=== PATIENT | male | born 1950 | race Caucasian/White ===

== ENCOUNTER 2025-02-18 15:18 | Outpatient (CLI) | payer OTHER ==
[~2025-02-18 15:18] MED LIST: TOBRADEX EYE DR10 ML OP
== END 2025-02-18 15:26 | disposition home or self-care (01) ==
LOC: RAD 15:18
PROVIDERS: ATTEND Family Medicine
DX: J44.9 Chronic obstructive pulmonary disease, unspecified (principal); R05.1 Acute cough

== ENCOUNTER 2025-04-01 18:19 | Emergency (ER) | payer OTHER ==
[~2025-04-01] VITALS: Ht 177.8 cm; Wt 70.8 kg
[2025-04-01] MEDS ORDERED: SINGULAIR4 M1 (18:40)
[2025-04-01] MEDS ORDERED: HYOSCYAMINE SULFATE 0.125 MG TAB.SUBL ONE (19:13)
[2025-04-01] MEDS ORDERED: FAMOTIDINE/PF 20 MG/2 ML VIAL ONE (19:13)
[2025-04-01] MEDS ORDERED: HYOSCYAMINE SULFATE 0.125 MG TAB.SUBL SL ONE (19:15)
[2025-04-01] MEDS ORDERED: FAMOtidine 10 MG/ML (4ML VIAL) IV PUSH ONE (19:15)
[2025-04-01 19:30] LABS: BASO % 0.2 % (0.1-1.2); EOS # 0.01 (0.04-0.54); EOS % 0.1 % (0.7-7.0); LYMPH # 1.09 (1.18-3.74); LYMPH % 8.5 % (19.3-53.1); MEAN PLATELET VOLUME 11.10 fl (9.4-12.4); MONO # 0.61 (0.24-0.82); MONO % 4.7 % (4.7-12.5); NEUT # 11.09 (1.56-6.13); NEUT % 86.2 % (34.0-71.1); RED CELL DISTRIBUTION WIDTH 11.9 % (11.6-14.4)
[2025-04-01 20:00] LABS: ALT/SGPT 34.0 U/L (12-78); AST/SGOT 18.0 U/L (15-37); BILIRUBIN TOTAL 0.43 mg/dL (0.3-1.2); BUN CREA RATIO 23.0 (7.0-25.0); CREATININE SERUM 0.94 mg/dL (0.70-1.30); GFR 78.67; GLOBULINA 3.3 G/DL (2.4-3.5); GLUCOSE FASTING 147.0 mg/dL (65-100); OSMOLALITY SERUM 284.0 MOSM/KG (275-295)
[2025-04-01] MEDS ORDERED: CEFTRIAXONE SODIUM 1,000 MG VIAL ONE (20:10)
[2025-04-01] MEDS ORDERED: CEFTRIAXONE SODIUM 1,000 MG VIAL IM ONE (20:15)
[2025-04-01 20:59] LABS: URINE APPEARANCE Clear; URINE BILIRRUBIN Negative (NEGATIVE); URINE BLOOD Negative; URINE COLOR Yellow; URINE GLUCOSE Negative (NEGATIVE); URINE KETONE Negative (NEGATIVE); URINE LEUKOCYTE Negative; URINE NITRATE Negative; URINE PROTEIN Negative (NEGATIVE); URINE UROBILINOGEN 0.2 E.U./dl
[2025-04-01 21:07] LABS: URINE BACTERIA 1.2 uL (0.0-1933); URINE CAST 0.00 uL (0.0-1.40); URINE EPITHELIAL CELLS 0.7 uL (0.0-38.8); URINE RBC 1.9 uL (0.0-20.8); URINE WBC 0.9 uL (0.0-23.2)
[2025-04-01] MEDS ORDERED: PEPCID AC20 MG PO (22:23)
[2025-04-01] MEDS ORDERED: CIPRO500 MG PO (22:23)
[2025-04-01] MEDS ORDERED: ZOFRAN8 MG PO (22:24)
== END 2025-04-01 22:31 | disposition home or self-care (01) ==
LOC: ER 18:41
PROVIDERS: General Practice
DX: R10.12 Left upper quadrant pain (principal); R11.0 Nausea; K57.30 Diverticulosis of large intestine without perforation or abscess without bleeding
CPT/HCPCS: 36415; 74176; 96365; 96372; 99284; J0696; J3490

== ENCOUNTER 2025-04-24 15:44 | Emergency (ER) | payer OTHER ==
[~2025-04-24] VITALS: Ht 177.8 cm; Wt 72.6 kg
[~2025-04-24 15:44] MED LIST changes: +CIPRO500 MG PO; +PEPCID AC20 MG PO; +SINGULAIR4 M1; +ZOFRAN8 MG PO
[2025-04-24] MEDS ORDERED: FAMOTIDINE/PF 20 MG in 0.9 % SODIUM CHLORIDE 8 ML IV PUSH STA (17:36)
[2025-04-24] MEDS ORDERED: FAMOTIDINE/PF 20 MG/2 ML VIAL ONE (17:39)
[2025-04-24] MEDS ORDERED: MAG HYDROX/ALUMINUM HYD/SIMETH 30 ML BLIST.PACK PO ONE ×2 (17:39→17:45)
[2025-04-24] MEDS ORDERED: KETOROLAC TROMETHAMINE 30 MG VIAL ONE (17:39)
[2025-04-24] MEDS ORDERED: KETOROLAC TROMETHAMINE 30 MG VIAL IV ONE (17:45)
[2025-04-24] MEDS ORDERED: SUCRALFATE 1 G TABLET PO ONE (17:45)
[2025-04-24 18:08] LABS: BASO % 0.3 % (0.1-1.2); EOS # 0.04 (0.04-0.54); EOS % 0.5 % (0.7-7.0); LYMPH # 1.58 (1.18-3.74); LYMPH % 20.6 % (19.3-53.1); MEAN PLATELET VOLUME 11.10 fl (9.4-12.4); MONO # 0.49 (0.24-0.82); MONO % 6.4 % (4.7-12.5); NEUT # 5.51 (1.56-6.13); NEUT % 71.9 % (34.0-71.1); RED CELL DISTRIBUTION WIDTH 12.0 % (11.6-14.4)
[2025-04-24 18:37] LABS: ALT/SGPT 31 U/L (12-78); AST/SGOT 23 U/L (15-37); BILIRUBIN TOTAL 0.31 mg/dL (0.3-1.2); BILIRUBIN,CONJUGATED < 0.10 mg/dL (0.0-0.2); BUN CREA RATIO 28 (7.0-25.0); CREATININE SERUM 0.80 mg/dL (0.70-1.30); GFR 94.76; GLOBULINA 3.5 G/DL (2.4-3.5); GLUCOSE FASTING 121 mg/dL (65-100); OSMOLALITY SERUM 286 MOSM/KG (275-295)
[2025-04-24] MEDS ORDERED: CARAFATE1 GM PO (19:26)
[2025-04-24] MEDS ORDERED: PEPCID AC20 MG PO (19:26)
== END 2025-04-24 19:57 | disposition home or self-care (01) ==
LOC: ER 15:44
PROVIDERS: General Practice
DX: K29.70 Gastritis, unspecified, without bleeding (principal)